=== PATIENT | male | born 1955 | race Caucasian/White ===

== ENCOUNTER 2024-08-31 18:03 | Emergency (ER) | payer MEDICARE, MEDICAID, SELFPAY ==
[2024-08-31 18:17] VITALS: BP 173/82; PULSE 106; RESP 18; TEMP 36.7; O2SAT 98; BMI 18.5
--- NOTE | 2024-08-31 18:36 | PD.EDRME ---
Rapid Medical Screening Exam RME Arrival date/time: 08/31/24 18:03 Chief Complaint: Wound/Laceration Time Seen by Provider: 08/31/24 18:36 Vital signs: Vital Signs Temperature 98.0 F 08/31/24 18:17 Pulse Rate 106 H 08/31/24 18:17 Respiratory Rate 18 08/31/24 18:17 Blood Pressure 173/82 H 08/31/24 18:17 Pulse Oximetry (%) 98 08/31/24 18:17 Oxygen Delivery Method Room Air 08/31/24 18:17 Pulse ox room air is 98% Vital signs reviewed by provider: Yes RME Narrative: 68-year-old special-needs person fell causing a laceration to the left side of his face.
--- NOTE | 2024-08-31 20:15 | EDNOTE_ITS ---
<Statement entered by Mariella Cabral MD - 08/31/24 21:02> As co-signing physician, I was present and available for consult prn. I concur with the plan and care as documented by the midlevel provider. ED Wound/Laceration-RME/HPI General Chief Complaint: Wound/Laceration Stated Complaint: Laceration to left eye Time Seen by Provider: 08/31/24 18:36 Arrival date/time: 08/31/24 18:03 RME / HPI RME / HPI narrative: 68-year-old male patient with significant history of mental retardation, nonverbal, came in for evaluation regarding laceration to the left side of the face. Patient accidentally hit his face on a table resulting into a 1 cm gaping laceration. Denies any LOC denies any other complaints. Patient is ambulatory. Related Data Home Medications ?Medication ?Instructions ?Recorded ?Confirmed phenytoin sodium extended 100 mg 300 mg PO HS ##0 08/0802/19/23 capsule levocetirizine 5 mg tablet 5 mg PO BID PRN Itching 02/19/23 multivitamin 1 tab PO QDAY 12/31/2102/19 quetiapine 50 mg tablet (Seroquel) 50 mg PO BID 02/19/23 temazepam 30 mg capsule 30 mg PO HS 12/31/21 3 fluoxetine 20 mg capsule 40 mg PO QDAY 05/06/2202/19 risperidone 2 mg tablet 3 mg PO HS 05/06/22 02/19/23 atorvastatin 80 mg tablet 80 mg PO QDAY 02/19/2302/19 food supplemt, lactose-reduced 1 ea PO TID 02/19/23 (Ensure oral liquid) valproic acid 250 mg capsule 250 mg PO BID 02/19/23 Previous Rx's ?Medication ?Instructions ?Recorded clindamycin HCl 300 mg capsule 300 mg PO TID #21 caps 12/05/23 Allergies Allergy/AdvReac Type Severity Reaction Status Date / Time No Known Allergies Allergy Verified 08/31/24 18:07 Review of Systems Review of Systems Narrative Review of Systems: Review of system reviewed and within normal limits except mentioned in HPI ED Exam Narrative Physical exam: VITAL SIGNS: Reviewed. GENERAL APPEARANCE: Alert and good eye contact, no acute distress, HEAD AND FACE:+1 cm laceration to left side of face near angle of the eye ENT: PERRL, pink conjunctivitis, eyelid no trauma, Mucous membrane moist. NECK: Supple, nontender, no nuchal rigidity. CHEST: No tenderness, no crepitus, no paradoxical movement, no retractions. LUNGS: Clear, well ventilated, symmetric, no rales, no wheezing, no ronchi, no stridor, good breath sounds bilaterally. HEART: Regular rate, regular rhythm, no murmur, no gallops. ABDOMEN: Soft, positive bowel sounds, nondistended, no guarding, nontender, no rebound, no masses, RECTAL: Deferred. GENITAL: Deferred. NEUROLOGICAL: Gross motor function intact sensory function intact, Appropriate for age. MUSCULOSKELETAL: low back nontender, full range of motion. EXTREMITIES: Nontender, full range of motion. SKIN: Color pink, dry, no rash, no lacerations, no abrasions, no contusions. LYMPHATICS: Deferred. Course Quality Measures none Vital Signs Vital signs: Vital Signs Temperature 98.0 F 08/31/24 18:17 Pulse Rate 106 H 08/31/24 18:17 Respiratory Rate 18 08/31/24 18:17 Blood Pressure 173/82 H 08/31/24 18:17 Pulse Oximetry (%) 98 08/31/24 18:17 Oxygen Delivery Method Room Air 08/31/24 18:17 Wound / Laceration MDM Narrative MDM Narrative:: 68-year-old male patient with significant history of mental retardation, nonverbal, came in for evaluation regarding laceration to the left side of the face. Patient accidentally hit his face on a table resulting into a 1 cm gaping laceration. Denies any LOC denies any other complaints. Patient is ambulatory. Wound cleansed with skin cleanser, Steri-Strips applied and Dermabond applied good approximation of the laceration was achieved. Patient tolerated the procedure well. Imaging is not needed at this time. The injury will not cause intracranial bleeding. Patient data External records reviewed:: None Clinical information provided by:: none Social determinants that could affect healthcare access:: none Patient has the following chronic illnesses:: Seizure disorder, mental retardation How is presenting disease/condition affected by chronic disease/condition?: exacerbated by Evaluation data The following diagnostics were reviewed and interpreted by me:: other (specify) (None) Lab and/or radiology exams considered but not ordered:: None Interpretation Summary: Plan Medications / Prescriptions Medications or Prescriptions considered but not ordered:: None Medication administrations:: None Consultations Consultation(s) initiated? (list below): No Diagnosis Wound Differential Diagnosis: laceration, abrasion and avulsion of skin Most likely diagnosis given after review of the tests above:: Facial laceration Admission Indicated Admission indicated?: not indicated Admission Request Was there a request for admission?: No Disposition Plan Disposition Plan: Discharge Discharge Attestation Discharge Attestation: Patient condition: Stable Discharge Plan Plan Patient Disposition: HOME (Self Care) Discharge Disposition comment: Stable Prescriptions/Referrals Prescriptions/Med Rec: No Action phenytoin sodium extended 100 MG capsule 300 mg PO HS Qty: 0 multivitamin Tablet 1 tab PO QDAY temazepam 30 mg Capsule 30 mg PO HS quetiapine [Seroquel] 50 mg Tablet 50 mg PO BID levocetirizine 5 mg Tablet 5 mg PO BID PRN (Reason: Itching) risperidone 2 mg Tablet 3 mg PO HS fluoxetine 20 mg Capsule 40 mg PO QDAY clindamycin HCl 300 mg capsule 300 mg PO TID Qty: 21 0RF atorvastatin 80 mg tablet 80 mg PO QDAY valproic acid 250 mg capsule 250 mg PO BID Ensure Liquid 1 ea PO TID Referrals: No Primary/Family,Physician [Primary Care Provider] - In 1 week Problem List Clinical Impression: Laceration of face Patient/Caregiver Discharge Instructions Discharge Activity: activity as tolerated Education Materials: ED Laceration Small or ... Additional Instructions: Thank you for the opportunity for serving you today. You are stable for discharged . You are advised to: Follow-up with your PCP in 1 to 2 days Return to ED for worsening of symptoms Do not remove the Steri-Strips for 1 week or until it falls off. Print Language: Kazakh Stand Alone Forms: [employer] Award Info., Patient Portal Info Letter PARISH/KENDALL Supervising Physician PARISH/KENDALL Supervising Physician: MD Sacha
== END 2024-08-31 20:27 | disposition home or self-care (01) ==
PROVIDERS: Emergency Provider Emergency Medicine
DX: S01.81XA Laceration without foreign body of other part of head, initial encounter (principal); W22.8XXA Striking against or struck by other objects, initial encounter
CPT/HCPCS: 12011; 99283

== ENCOUNTER 2025-02-17 08:29 | Inpatient (IN) | payer MEDICARE, MEDICAID, SELFPAY ==
[2025-02-17] VITALS (13 sets, daily range): BP systolic 141–161; BP diastolic 80–109; PULSE 83–110; RESP 16–22; TEMP 36.6–38.8; O2SAT 88–95; BMI 21.7; BMI 20.5
--- NOTE | 2025-02-17 08:38 | XR_ITS ---
Examination: CT cervical spine without contrast 2-D sagittal reconstructions 2-D coronal reconstructions 3-D reconstructions. Exam date and time: February 17, 2025, 1032 hours INDICATIONS: Patient fell today with injury to the neck, neck pain CTDI:vol (mGy) 14.2 DLP: (mGycm) 290 Technique: Multiple 2 mm axial sections of the cervical spine have been obtained. The coronal and sagittal reconstructions have been obtained. 3-D reconstructions have been obtained. Low dose protocols were performed. One or more of the following dose reduction techniques were used; automated exposure control, adjustment of the mA and/or KV according to patient size, use of iterative reconstruction technique. Findings: Axial sections demonstrate intact base of the skull. C1 exhibit satisfactory relationship to the odontoid. No acute cervical vertebral body fracture seen. Alignment posterior spinous processes satisfactory. Impression: No acute cervical fracture.
--- NOTE | 2025-02-17 08:38 | EKG_ITS ---
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
--- NOTE | 2025-02-17 08:38 | XR_ITS ---
Examination: CT brain head without contrast. 2-D sagittal coronal reconstructions Date and time of exam: February 17, 2025, 10:34 a.m. INDICATIONS: Patient fell today with injury to the head, head pain CTDI: vol (mGy): 56 DLP: (mGycm): 1202 Technique: Multiple CT axial sections of the brain have been obtained, 5 mm slice thickness. Contrast has not been administered. 2-D sagittal, coronal reconstructions have been obtained Low dose protocols were performed. One or more of the following dose reduction techniques were used; automated exposure control, adjustment of the mA and/or KV according to patient size, use of iterative reconstruction technique. Findings: No significant ventricular enlargement. Probable sebaceous cyst in the right frontal scalp Intra-axial or extra-axial hemorrhage density is not seen. No mass effect or midline shift Basal cisterns are not remarkable. Fourth ventricle is midline. Cranial vault intact. Impression: Negative for acute hemorrhage, mass effect or midline shift
--- NOTE | 2025-02-17 08:38 | XR_ITS ---
EXAMINATION: AP chest single view TECHNIQUE: AP portable semiupright chest single view Date and time: February 17, 2025, 1045 hours, comparison May 05, 2022 INDICATIONS: Shortness of breath today. FINDINGS: Moderate enlargement left ventricle Moderate vascular congestion Suspicious for early septal edema at the lung bases No lobar pneumonia Old fracture right clavicle IMPRESSION: Early heart failure
--- NOTE | 2025-02-17 08:41 | PD.EDADULT ---
ED General RME/HPI General Chief complaint: Fall Stated complaint: GROUND LEVEL FALL Time Seen by Provider: 02/17/25 08:38 Arrival date/time: 02/17/25 08:29 Related Data Home Medications ?Medication ?Instructions ?Recorded ?Confirmed phenytoin sodium extended 100 mg 300 mg PO HS ##0 09/01/15 02/19/23 capsule levocetirizine 5 mg tablet 5 mg PO BID PRN Itching 12/31/21 02/19/23 multivitamin 1 tab PO QDAY 12/31/21 02/19/23 quetiapine 50 mg tablet (Seroquel) 50 mg PO BID 12/31/21 02/19/23 temazepam 30 mg capsule 30 mg PO HS 12/31/21 02/19/23 fluoxetine 20 mg capsule 40 mg PO QDAY 05/06/22 02/19/23 risperidone 2 mg tablet 3 mg PO HS 05/06/22 02/19/23 atorvastatin 80 mg tablet 80 mg PO QDAY 02/19/23 02/19/23 food supplemt, lactose-reduced 1 ea PO TID 02/19/23 02/19/23 (Ensure oral liquid) valproic acid 250 mg capsule 250 mg PO BID 02/19/23 02/19/23 Previous Rx's ?Medication ?Instructions ?Recorded clindamycin HCl 300 mg capsule 300 mg PO TID #21 caps 12/05/23 furosemide 40 mg tablet (Lasix) 40 mg PO QDAY PRN edema or 02/17/25 shortness of breath 1 week #7 tabs Allergies Allergy/AdvReac Type Severity Reaction Status Date / Time No Known Allergies Allergy Verified 08/31/24 18:07 ED Exam Narrative Physical exam: Physical Exam: GENERAL: Awake, nonresponsive, appears stated age HEENT: 3 cm laceration of the right scalp. Moist mucosa. PERRLA/EOM yes + D71 I. CARDIO: Heart RRR, no obvious murmurs, no JVD. PULM: No coughing or visible SOB but requiring supplemental oxygen in order to saturate >90%. Lungs CTA B/L. GI: Abdomen soft, NT/ND, +BS. SKIN/MSK/EXT: No wounds/discoloration/rashes/edema/amputations noted. +Pedal pulses present B/L. NEURO: Oriented x0, 10?points Hilario Coma Score E(4) V(1) M(5), Moves extremities x4. Course Quality Measures none Orders Category Date Time Status Bedside COVID-19 Antigen Test NOW Care 02/17/25 15:47 Active Bedside Influenza A&B Antigen Test NOW Care 02/17/25 15:47 Completed Bedside RSV Test NOW Care 02/17/25 15:47 Completed EKG (ED ONLY) *Do not use* NOW Care 02/17/25 08:39 Completed In and Out Catheter X1 Care 02/17/25 08:40 Completed Insert IV NOW Care 02/17/25 08:[address] cervical spine wo con Stat Exams 02/17/25 08:[address] head/brain wo con Stat Exams 02/17/25 08:38 Completed CXRP [XR chest 1V portable] Stat Exams 02/17/25 08:38 Completed CXRP [XR chest 1V portable] Stat Exams 02/17/25 16:20 Taken EKG (ED Only) Stat Exams 02/17/25 08:38 Draft BNP [B-Type Natriuretic Peptide] Stat Lab 02/17/25 09:30 Completed CBC Stat Lab 02/17/25 09:30 Completed CMP [Comprehensive Metabolic Panel] Stat Lab 02/17/25 09:30 Completed Lactic Acid [Lactate (Lactic Acid)] Stat Lab 02/17/25 09:30 Completed Troponin I Stat Lab 02/17/25 09:30 Completed Urinalysis, C/S if Indicated Stat Lab 02/17/25 11:08 Completed Furosemide Inj [Lasix Inj] Med 02/17/25 13:20 Discontinued 40 mg IVP X1 ONE Levalbuterol Rt [Xopenex Rt Rebecca] Med 02/17/25 15:40 Discontinued 0.63 mg INH X1 ONE Lidocaine 1% Vial 20 ml [Xylocaine 1% 20 ML] Med 02/17/25 08:41 Discontinued 20 ml INFL X1 ONE Metoprolol Succinate Xl [Toprol Xl] Med 02/17/25 17:54 Once 25 mg PO X1 ONE Vital Signs Vital signs: Vital Signs Respiratory Rate 19 02/17/25 08:31 Blood Pressure 161/93 H 02/17/25 08:31 Pulse Oximetry (%) 88 L 02/17/25 08:31 Discharge Plan Plan Patient Disposition: HOME (Self Care) Patient condition on transfer: Stable Prescriptions/Referrals Prescriptions/Med Rec: New furosemide [Lasix] 40 mg tablet 40 mg PO QDAY PRN (Reason: edema or shortness of breath) 7 Days Qty: 7 0RF No Action phenytoin sodium extended 100 MG capsule 300 mg PO HS Qty: 0 multivitamin Tablet 1 tab PO QDAY temazepam 30 mg Capsule 30 mg PO HS quetiapine [Seroquel] 50 mg Tablet 50 mg PO BID levocetirizine 5 mg Tablet 5 mg PO BID PRN (Reason: Itching) risperidone 2 mg Tablet 3 mg PO HS fluoxetine 20 mg Capsule 40 mg PO QDAY clindamycin HCl 300 mg capsule 300 mg PO TID Qty: 21 0RF atorvastatin 80 mg tablet 80 mg PO QDAY valproic acid 250 mg capsule 250 mg PO BID Ensure Liquid 1 ea PO TID Referrals: Nick Montelongo MD [Primary Care Provider, [facility]] - In 1 week Problem List Clinical Impression: Laceration of adventist Patient/Caregiver Discharge Instructions Additional Instructions: Please follow-up with your PCP within 1 week for suture removal of the right temporal region Ask your PCP to refer you to a cap cutter for cardiac workup and CXR showing early heart failure pattern, not clinically significant If your symptoms worsen or if you develop new chest pain, shortness of breath, dizziness or loss of consciousness - please return to the ER immediately. 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 As noted, patient was at his current baseline when he had a ground-level fall and hit his head which resulted in a 3 cm laceration of his right temporal region. Hypo Dipper at bedside states that she has been with the patient for about 2 weeks and thus is not exactly sure of his entire medical history. Of note, patient has not been seen by cap cutter in the past but does follow-up with a primary care doctor. On examination, please refer to physical exam above; patient presented mildly hypertensive 161/93, heart rate of 99, respirate of 19, afebrile satting 88-95 on room air. Pertinent lab findings include CBC without any pertinent findings including no leukocytosis and no anemia. CMP did not show any concerning electrolyte abnormalities and no acute kidney injury, lactic acid was 1.5, liver function enzymes slightly elevated with AST 54, ALT 36 otherwise T. bili of 0.5 and alk phos of 108. Troponin was less than 0.020, BNP of less than 20. Urinalysis did not show any signs of infection there was some ketones in the urine +1 without any much clinical significance. Due to patient having a fall head CT and cervical spine CT were ordered which were both negative and chest x-ray did not show mild vascular congestion for possible early heart failure. #Ground-level fall #Laceration of the left right temporal region Status post suture placement Plan: Sutures will need to be removed in 10 to 14 days Patient recommended follow-up with PCP within that timeframe so that the sutures could be removed #Early heart failure Incidentally patient noted to have a low SpO2 between 88-95 with some sporadic wet sounding cough Chest x-ray as above did not show anything concerning other than some possibly early heart failure BNP and troponin within normal limits Patient clinical exam does not appear to be an acute heart failure exacerbation with no JVD, crackles or lower extremity pitting edema noted Lasix 40mg IV given x1, breathing treatment with Xopenex and x1 metoprolol succinate 25 mg (tachycardia 110 and BP 151/106 with CHF as above) Lateral chest xray also ordered to r/o any PNA not seen on PA Plan: Will discharge patient with the following recommendation Take lasix 40mg by mouth as needed if patient develop shortness of breath or swelling Ask your PCP to refer you to a cap cutter for cardiac workup and CXR showing early heart failure pattern, not clinically significant If your symptoms worsen or if you develop new chest pain, shortness of breath, dizziness or loss of consciousness - please return to the ER immediately. Patient seen and assessed with attending Dr. Juana Segura, DO PGY-2 Internal Medicine - [facility] Medication Administration(s) Medication Administration History Metoprolol Succinate (Metoprolol Succinate Xl 25 Mg Tabcr) 25 mg PO X1 ONE Stop: 02/17/25 17:55 Discontinued Medications Furosemide (Furosemide Inj 10 Mg/Ml 4ml Vial) 40 mg IVP X1 ONE Stop: 02/17/25 13:21 Last Admin: 02/17/25 14:57 Dose: 40 mg Documented By: BD Levalbuterol HCl (Levalbuterol Rt 0.63 Mg/3 Ml Nebu) 0.63 mg INH X1 ONE Stop: 02/17/25 15:41 Last Admin: 02/17/25 16:08 Dose: 0.63 mg Documented By: AFUA Lidocaine HCl (Lidocaine Hcl 1% 20 Ml Vial) 20 ml INFL X1 ONE Stop: 02/17/25 08:42 Last Admin: 02/17/25 12:41 Dose: 20 ml Documented By: DO Comments: used by provider
[2025-02-17 09:38] LABS: Lactate (Lactic Acid) 1.5 mMol/L (0.4-2.0)
[2025-02-17 09:57] LABS: Basophils # (Auto) 0.0 Thou/mm3 (0.0-0.2); Basophils % (Auto) 0 % (0-2.5); Eosinophils # (Auto) 0.1 Thou/mm3 (0.0-0.5); Eosinophils % (Auto) 1 % (0-10); Hematocrit 46.1 % (41.0-53.0); Hemoglobin 15.7 g/dL (13.5-16.0); Immature Granulocytes Auto 0.03 Thou/mm3 (0.00-0.00); Lymphocytes # (Auto) 0.6 Thou/mm3 (1.0-4.8); Lymphocytes % (Auto) 7 % (10-50); Mean Corpuscular HGB Conc 34.1 g/dl (31.0-37.0); Mean Corpuscular Hemoglobin 32.8 pg (25.0-35.0); Mean Corpuscular Volume 96 fL (80-100); Monocytes # (Auto) 1.5 Thou/mm3 (0.0-0.8); Monocytes % (Auto) 17 % (0-12); Neutrophils # (Auto) 6.6 Thou/mm3 (1.8-7.7); Neutrophils % (Auto) 75 % (37-80); Nucleated Red Blood Cell # 0.00 Thou/mm3 (0.00-0.00); Nucleated Red Blood Cell % 0 /100 WBC (0); Platelet Count 153 Thou/mm3 (140-440); RDW Standard Deviation 42.7 fL (35.1-43.9); Red Blood Count 4.78 Miln/mm3 (4.50-5.90); White Blood Count 8.9 Thou/mm3 (3.8-10.6)
[2025-02-17 10:16] LABS: Alanine Aminotransferase 36 U/L (10-49); Albumin, Serum 4.5 gm/dL (3.4-4.8); Albumin/Globulin Ratio 1.7 (1.2-2.2); Alkaline Phosphatase 108 U/L (46-116); Anion Gap 10 (7-16); Aspartate Amino Transferase 54 U/L (0-34); BUN/Creatinine Ratio 19 Ratio (12-20); Bilirubin,Total 0.5 mg/dL (0.3-1.2); Blood Urea Nitrogen 15 mg/dL (9-23); Calcium 9.3 mg/dL (8.3-10.6); Calcium (Corrected) 9.3 mg/dL (8.5-10.1); Carbon Dioxide 29.8 mMol/L (20.0-31.0); Chloride 102 mMol/L (98-107); Creatinine (Component) 0.8 mg/dL (0.6-1.3); Estimated Creatinine Clearance 80.8 mL/min (>60); Globulin 2.6 gm/dL (2.3-3.5); Glucose 100 mg/dL (74-106); Osmolality,Calculated 283 (275-295); Potassium 4.5 mMol/L (3.4-5.1); Sodium 142 mMol/L (136-145); Total Protein 7.1 gm/dL (5.7-8.2); Troponin I < 0.020 ng/mL (0.0-0.045); eGFR > 60 See Note
[2025-02-17 10:35] LABS: B-Type Natriuretic Peptide < 20 pg/mL (0-100)
[2025-02-17 11:32] LABS: Collection Type, Urine Catheter
--- NOTE | 2025-02-17 11:37 | PC.NURSE ---
provider in room for lac repair at this time
[2025-02-17 11:48] LABS: Bilirubin,Urine Negative (Negative); Blood,Urine Negative (Negative); Clarity,Urine Clear (Clear/Hazy); Color,Urine Yellow (Lt Yel-Yel); Culture Indicated,Urine Not Indicated; Glucose, Urine Negative (Negative); Ketones,Urine 1+ (Negative); Leukocyte Esterase,Urine Negative (Negative); Nitrite,Urine Negative (Negative); PH,Urine 6.0 (5.0-7.0); Protein,Urine Negative (Neg - Trace); RBC,Urine 2 /hpf (0-3); Specific Gravity,Urine 1.022 (1.001-1.035); Squamous Epithelial Cell,Urine < 1 /hpf (0-5); Urobilinogen,Urine Negative mg/dL (0.0-1.0); WBC,Urine 1 /hpf (0-5)
[2025-02-17] MEDS: LIDOCAINE HCL 1% 20 ML VIAL INFL (12:41)
[2025-02-17] MEDS: FUROSEMIDE INJ 10 MG/ML 4ML VIAL 40 MG IVP (14:57)
[2025-02-17] MEDS: LEVALBUTEROL RT 0.63 MG/3 ML NEBU INH (16:08)
--- NOTE | 2025-02-17 16:20 | XR_ITS ---
EXAMINATION: Lateral chest single view TECHNIQUE: Upright lateral chest single view Date and time: September 17, 2024, 1701 hours INDICATIONS: Early heart failure and AP chest February 17, 2025 FINDINGS: Opacity left base obscuring detail left hemidiaphragm Prominent vascular congestion Intact osseous structures IMPRESSION: Prominent vascular congestion Pneumonia posterior basal segment left lower lobe
[2025-02-17] MEDS: METOPROLOL SUCCINATE XL 25 MG TABCR PO (18:14)
[2025-02-17 18:33] LABS: D-Dimer 285 ng/mL (<600)
[2025-02-17 19:14] LABS: Base Excess 7 (-3-3); HCO3 31 mEq/L (20-26); Inspired Oxygen, FIO2 90 %; O2 Saturation 95 % (91-98); PCO2 42 mmHg (32.0-48.0); PO2 66 mmHg (83-108); pH, Arterial 7.48 (7.35-7.45)
[2025-02-17 19:15] LABS: Allen Test Performed/OK; Puncture Site Right Radial
[2025-02-17 19:25] LABS: Base Excess, Venous 7 (-3-3); Lactate (Lactic Acid) 1.5 mMol/L (0.4-2.0); O2 Saturation, Venous 90 % (96-97); PCO2, Venous 41 mmHg (36-56); PO2, Venous 54 mmHg (15-58); pH, Venous 7.49 (7.33-7.66)
[2025-02-17 19:29] LABS: Sed Rate (ESR) 35 mm/hr (0-20)
[2025-02-17] MEDS: cefTRIAXone/D5w 1gm IV premix 1 GM/50 ML BAG IV (19:39)
[2025-02-17] MEDS: AZITHROMYCIN INJ 500 MG in SODIUM CHLORIDE 0.9% 250 ML 250 ML 250 MG IV (19:40)
[2025-02-17 19:58] LABS: Alcohol, Blood Medical < 3.0 mg/dL (0-10.0); Bilirubin,Direct 0.1 mg/dL (0.0-0.3); Lipase 28 U/L (12-53); Magnesium 2.1 mg/dL (1.6-2.6); Procalcitonin 0.25 ng/ml (0.0-0.49); Thyroid Stimulating Hormone 3.58 uIU/mL (0.55-4.78)
--- NOTE | 2025-02-17 20:23 | PD.EDADDENDU ---
Emergency Room Addendum Addendum Narrative: I took over the care from Qasim Segura MD at _6PM_ on _02/17/25_. See previous notes for complete H & P and ED course. I reviewed all diagnostic test results. Diagnoses include: Acute respiratory failure with hypoxia Pneumonia I discussed the case with our hospitalist. About the presentation and exam and diagnostics and treatments here. And need of further care in the hospital. Will accept the patient. Ez Gould MD
[2025-02-17 20:54] LABS: Glucose Estimated Average 97 mg/dL (80-131); Hemoglobin A1C 5.0 % Hgb (4.8-6.0)
[2025-02-17 20:58] LABS: C-Reactive Protein > 10.0 mg/dL (0.0-0.9)
[2025-02-17] MEDS: RINGERS LACTATED 1000 ML 1,000 ML 999 ML IV (21:34)
[2025-02-17] MEDS: PHENYTOIN 100 MG CAPSR 300 MG PO (21:34)
[2025-02-17 23:00] LABS: Amphetamine/Methamp Scrn,U Negative (Negative); Barbiturate Screen,Urine Negative (Negative); Benzodiazepines Screen,Urine Negative (Negative); Benzoylecgonine Screen, Ur Negative (Negative); Fentanyl Screen,Urine Negative (Negative); Opiate Screen,Urine Negative (Negative); THC Screen,Urine Negative (Negative)
[2025-02-18] VITALS (16 sets, daily range): BP systolic 113–156; BP diastolic 67–73; PULSE 65–98; RESP 17–24; TEMP 36.2–36.9; O2SAT 95–98; BMI 20.4
--- NOTE | 2025-02-18 00:13 | PD.HHHP ---
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 Wood Drill Operator also notes that patient has had mild fevers and cough for 1 day. At ED patient was noted to have 2 right temporal laceration and hematoma for which head CT and cervical spine CT were ordered at ED and were both normal with no acute abnormalities. History is limited to online banking specialist who is present by bedside as patient is nonverbal, at ED patient was seen on 5 L nasal cannula saturating at 96%, patient desaturate when taken off oxygen 86%. Vitals were noted for hypertension, tachycardia, tachypnea. ABG was noted for pO2 66, CXR showed pneumonia in posterior segment of left lower lobe, patient was given 1 dose of IV Lasix for concern of CHF noted on CXR, on exam patient was found to be dehydrated and was given 1L of LR bolus. Patient admitted for acute hypoxic respiratory failure in setting of community-acquired pneumonia. Review of Systems Review of Systems ROS Unobtainable: unobtainable due to medical condition Meds Home Medications and Allergies Home Medications ?Medication ?Instructions ?Recorded ?Confirmed ?Type phenytoin sodium extended 100 mg 300 mg PO HS ##0 09/01/15 02/18/25 History capsule levocetirizine 5 mg tablet 5 mg PO BID PRN Itching 12/31/21 02/18/25 History multivitamin 1 tab PO QDAY 12/31/21 02/18/25 History quetiapine 50 mg tablet (Seroquel) 50 mg PO BID 12/31/21 02/19/23 History temazepam 30 mg capsule 30 mg PO HS 12/31/21 02/19/23 History fluoxetine 20 mg capsule 40 mg PO QDAY 05/06/22 02/19/23 History risperidone 2 mg tablet 3 mg PO HS 05/06/22 02/19/23 History atorvastatin 80 mg tablet 80 mg PO QDAY 02/19/23 02/19/23 History food supplemt, lactose-reduced 1 ea PO TID 02/19/23 02/19/23 History (Ensure oral liquid) valproic acid 250 mg capsule 250 mg PO BID 02/19/23 02/18/25 History divalproex 500 mg tablet,extended 2,000 mg PO HS anxiety 02/18/25 02/18/25 History release 24 hr Allergies Allergy/AdvReac Type Severity Reaction Status Date / Time No Known Allergies Allergy Verified 08/31/24 18:07 Exam Vital Signs Temp Pulse Resp BP Pulse Ox O2 Del Method O2 Flow Rate 99.2 F 92 22 H 142/81 H 95 Room Air 3.5 02/17/25 21:27 02/17/25 21:27 02/17/25 21:27 02/17/25 21:27 02/17/25 21:27 02/17/25 21:27 02/17/25 16:08 Narrative General: Not in acute distress. HEENT: Normocephalic,anicteric, EOM intact, PERRLA, moist mucous membranes, right mosque laceration and hematoma Heart: Tachycardic, no murmur or gallop. Lungs: Tachypneic, Clear to auscultation with equal breath sounds bilaterally. Abdomen: Bowel sounds normal, soft, non distended, no tenderness or guarding, no CVA tenderness Extremities: Sensation, circulation &motor function intact and equal in all extremities. Neurologic: Alert and oriented to name, place and date of , CN II-XII intact, able to move all extremities, DTRs normal Skin: Warm, dry, no rashes or ecchymosis noted. Results - Hospitalist Labs Diagrams: 02/17/25 09:30 02/17/25 09:30 Labs: Short CBC 02/17/25 Range/Units 09:30 WBC 8.9 (3.8-10.6) Thou/mm3 Hgb 15.7 (13.5-16.0) g/dL Hct 46.1 (41.0-53.0) % Plt Count 153 (140-440) Thou/mm3 BMP 02/17/25 09:30 Sodium 142 Potassium 4.5 Chloride 102 Carbon Dioxide 29.8 BUN 15 Creatinine 0.8 Glucose 100 Calcium 9.3 Cardiac Enzymes 02/17/25 Range/Units 09:30 Troponin I < 0.020 (0.0-0.045) ng/mL Liver Function 02/17/25 02/17/25 Range/Units 09:30 19:10 Total Bilirubin 0.5 (0.3-1.2) mg/dL Direct Bilirubin 0.1 (0.0-0.3) mg/dL AST 54 H (0-34) U/L ALT 36 (10-49) U/L Alkaline Phosphatase 108 (46-116) U/L Albumin 4.5 (3.4-4.8) gm/dL Urine 02/17/25 Range/Units 11:08 Urine Color Yellow (Lt Yel-Yel) Urine Clarity Clear (Clear/Hazy) Urine pH 6.0 (5.0-7.0) Ur Specific [place] 1.022 (1.001-1.035) Urine Protein Negative (Neg - Trace) Urine Glucose (UA) Negative (Negative) ABG Interpretation ABG results: 02/17/25 02/17/25 19:07 19:10 ABG pH 7.48 H ABG pCO2 42 ABG pO2 66 L ABG HCO3 31 H ABG O2 Saturation 95 ABG Base Excess 7 H VBG pH 7.49 VBG pCO2 41 VBG pO2 54 VBG Base Excess 7 H Assessment & Plan -Hospitalist Additional Assessment 69-year-old male past medical history of developmental delay, nonverbal at baseline, seizure disorder, CVA with no residual deficits jade in after a fall without losing consciousness per social worker palliative care. Wood Drill Operator also notes that patient has had mild fevers and cough for 1 day. At ED patient was noted to have 2 right temporal laceration and hematoma for which head CT and cervical spine CT were ordered at ED and were both normal with no acute abnormalities. History is limited to online banking specialist who is present by bedside as patient is nonverbal, at ED patient was seen on 5 L nasal cannula saturating at 96%, patient desaturate when taken off oxygen 86%. Vitals were noted for hypertension, tachycardia, tachypnea. ABG was noted for pO2 66, CXR showed pneumonia in posterior segment of left lower lobe, patient will be admitted for acute hypoxic respiratory failure in setting of community-acquired pneumonia. Patient was given 1 dose of IV Lasix for concern of CHF noted on CXR, on exam patient was found to be dehydrated and was given 1L of LR bolus. #Acute hypoxic respiratory failure #Community-acquired pneumonia Oxygen as needed Follow-up blood cultures/sputum cultures Patient started on azithromycin, ceftriaxone #Ground-level fall #Laceration of the left right temporal region Status post suture placement Plan: Sutures will need to be removed in 10 to 14 days Patient recommended follow-up with PCP within that timeframe so that the sutures could be removed #Hypertension #Hyperlipidemia #Hx of CVA #History of seizures #Anxiety and aggression Resume home medications once reconciled. After examination of the patient and review of the clinical data I feel that this patient needs admission to the hospital for further treatment/evaluation. Plan of care discussed with patient and is in agreement. Shira Barrow MD Quality Measures Quality Measures VTE prophylaxis Advance care planning discussed with:: other (Wood Drill Operator)
--- NOTE | 2025-02-18 02:14 | PC.NURSE ---
Unable to complete orthostatic vitals at this time, patient not strong enough to stand up.
[2025-02-18 05:52] LABS: Magnesium 2.0 mg/dL (1.6-2.6)
--- NOTE | 2025-02-18 07:58 | ESPR_ITS ---
<Statement entered by Eduin Taylor MD - 02/18/25 18:13> I saw and examined patient personally and supervised PGY 1 resident, Dr. Crowe with formulating a management plan. I agree with the documentation with the exceptions as listed below. Patient on supplemental O2 and on ceftriaxone and azithromycin IV for treatment of community-acquired pneumonia. Once oxygen requirements are reduced, anticipate discharge back to his facility within next 24 to 48 hours. Plan of care discussed with Attending Dr. Dhaval Taylor MD PGY 2 Disclaimer: This note was dictated by speech recognition. Minor errors in cutting torch operator may be present due to voice recognition software. Documentation for date of: 02/18/25 Subjective Subjective Interval history: Patient seen and examined at bedside; no acute events overnight. Exam Vital Signs Temp Pulse Resp BP Pulse Ox O2 Del Method O2 Flow Rate 98.4 F 98 19 113/69 98 Room Air 4 02/18/25 04:00 02/18/25 04:21 02/18/25 04:00 02/18/25 04:00 02/18/25 04:00 02/18/25 04:00 02/17/25 22:55 Narrative Exam General: A/O x0, nonverbal at baseline, no acute distress, well-nourished, well- developed Eyes: PERRL, EOMI. Anicteric, vision grossly intact. Ears: No ear pain, no ear discharge, Hearing grossly intact. Nose: No nasal discharge. Mouth/Throat: Moist mucous membranes, no redness, no lesions. Neck: Neck supple, non-tender, no cervical lymphadenopathy. Lungs: Clear JEROME to auscultation and percussion, No accessory muscle use. Cardio: Normal S1/S2, regular rhythm, no murmurs, no JVD or carotid bruits. Abdomen: Soft, non-tender, no palpable masses, peristalsis present, no guarding or rebound. Extremities: Symmetrical, no significant deformities, no peripheral edema , non-tender, peripheral pulses present. Skin: No rashes, warm to touch. R hoahaoism/forehead scabbed wound, bruising from fall Neuro: No focal neurological deficits. Psych: Cooperative, appropriate mood and effect. Objective Labs 02/18/25 08:30 02/18/25 08:30 Labs: Laboratory Results - last 24 hr 02/17/25 02/17/25 02/17/25 09:30 11:08 19:07 WBC 8.9 RBC 4.78 Hgb 15.7 Hct 46.1 MCV 96 MCH 32.8 MCHC 34.1 RDW Std Deviation 42.7 Plt Count 153 Neut % (Auto) 75 Lymph % (Auto) 7 L Christian % (Auto) 17 H Eos % (Auto) 1 Baso % (Auto) 0 Neut # (Auto) 6.6 Lymph # (Auto) 0.6 L Christian # (Auto) 1.5 H Eos # (Auto) 0.1 Baso # (Auto) 0.0 Immature Gran # (Auto) 0.03 H Absolute Nucleated RBC 0.00 Immature Gran % 0 Nucleated RBC % 0 ESR D-Dimer 285 Puncture Site Right Radial ABG pH 7.48 H ABG pCO2 42 ABG pO2 66 L ABG HCO3 31 H ABG O2 Saturation 95 ABG Base Excess 7 H VBG pH VBG pCO2 VBG pO2 VBG O2 Sat (Bela) VBG Base Excess FiO2 90 Sodium 142 Potassium 4.5 Chloride 102 Carbon Dioxide 29.8 Anion Gap 10 BUN 15 Creatinine 0.8 Estim Creat Clear Calc 80.8 eGFR > 60 BUN/Creatinine Ratio [address] Glu mg/dL Hemoglobin A1c Calculated Osmolality 283 Lactic Acid 1.5 Calcium 9.3 Corrected Calcium 9.3 Magnesium Total Bilirubin 0.5 Direct Bilirubin AST 54 H ALT 36 Alkaline Phosphatase 108 Troponin I < 0.020 C-Reactive Prot, Quant B-Natriuretic Peptide < 20 Total Protein 7.1 Albumin 4.5 Globulin 2.6 Albumin/Globulin Ratio 1.7 Lipase Procalcitonin TSH Ur Collection Type Catheter Urine Color Yellow Urine Clarity Clear Urine pH 6.0 Ur Specific [place] 1.022 Urine Protein Negative Urine Glucose (UA) Negative Urine Ketones 1+ A Urine Blood Negative Urine Nitrite Negative Urine Bilirubin Negative Urine Urobilinogen (Auto) Negative Ur Leukocyte Esterase Negative Urine RBC 2 Urine WBC 1 Ur Squamous Epith Cells < 1 Urine Bacteria None Ur Culture Indicated? Not Indicated Urine Opiates Screen Negative Urine Fentanyl Screen Negative Ur Barbiturates Screen Negative U Amphetamin/Meth Scrn Negative U Benzodiazepines Scrn Negative U Cocaine Metab Screen Negative U Marijuana (THC) Screen Negative Ethyl Alcohol 02/17/25 02/18/25 19:10 04:18 WBC RBC Hgb Hct MCV MCH MCHC RDW Std Deviation Plt Count Neut % (Auto) Lymph % (Auto) Christian % (Auto) Eos % (Auto) Baso % (Auto) Neut # (Auto) Lymph # (Auto) Christian # (Auto) Eos # (Auto) Baso # (Auto) Immature Gran # (Auto) Absolute Nucleated RBC Immature Gran % Nucleated RBC % ESR 35 H D-Dimer Puncture Site ABG pH ABG pCO2 ABG pO2 ABG HCO3 ABG O2 Saturation ABG Base Excess VBG pH 7.49 VBG pCO2 41 VBG pO2 54 VBG O2 Sat (Bela) 90 L VBG Base Excess 7 H FiO2 Sodium Potassium Chloride Carbon Dioxide Anion Gap BUN Creatinine Estim Creat Clear Calc eGFR BUN/Creatinine Ratio Glucose Estimated Ave Glu mg/dL 97 Hemoglobin A1c 5.0 Calculated Osmolality Lactic Acid 1.5 Calcium Corrected Calcium Magnesium 2.1 2.0 Total Bilirubin Direct Bilirubin 0.1 AST ALT Alkaline Phosphatase Troponin I C-Reactive Prot, Quant > 10.0 H B-Natriuretic Peptide Total Protein Albumin Globulin Albumin/Globulin Ratio Lipase 28 Procalcitonin 0.25 TSH 3.58 Ur Collection Type Urine Color Urine Clarity Urine pH Ur Specific [place] Urine Protein Urine Glucose (UA) Urine Ketones Urine Blood Urine Nitrite Urine Bilirubin Urine Urobilinogen (Auto) Ur Leukocyte Esterase Urine RBC Urine WBC Ur Squamous Epith Cells Urine Bacteria Ur Culture Indicated? Urine Opiates Screen Urine Fentanyl Screen Ur Barbiturates Screen U Amphetamin/Meth Scrn U Benzodiazepines Scrn U Cocaine Metab Screen U Marijuana (THC) Screen Ethyl Alcohol < 3.0 ABG Interpretation ABG results: 02/17/25 02/17/25 19:07 19:10 ABG pH 7.48 H ABG pCO2 42 ABG pO2 66 L ABG HCO3 31 H ABG O2 Saturation 95 ABG Base Excess 7 H VBG pH 7.49 VBG pCO2 41 VBG pO2 54 VBG Base Excess 7 H Quality Measures Quality Measures VTE prophylaxis Advance care planning discussed with:: other Assessment & Plan Assessment Current Active Medications: Generic Name Dose Route Start Last Admin Trade Name Freq PRN Reason Stop Dose Admin Acetaminophen 650 mg 02/17/25 20:04 Acetaminophen 325 Mg Tablet PO 03/19/25 20:03 Q6H PRN Fever >101.5 Enoxaparin Sodium 40 mg 02/18/25 09:00 Enoxaparin Sod Inj 40 Mg/0.4 Ml Syringe SC 03/04/25 08:59 QDAY REGINA Azithromycin 250 mg/ Sterile 252.5 mls @ 252.5 mls/hr 02/18/25 09:00 Water 2.5 ml/ Sodium Chloride IV 02/25/25 08:59 QDAY REGINA Ceftriaxone Sodium/Dextrose 1 gm in 50 mls @ 100 mls/hr 02/18/25 09:00 Rocephin/D5w 1gm Iv Premix IV 02/25/25 08:59 QDAY REGINA Phenytoin 300 mg 02/17/25 21:00 02/17/25 21:34 Phenytoin 100 Mg Capsr PO 03/19/25 20:59 300 mg HS REGINA Administration Plan Patient is a 69-year-old male past medical history of developmental delay, nonverbal at baseline, seizure disorder, CVA with no residual deficits brought in after a fall without losing consciousness per rn complex care. #Acute hypoxic respiratory failure #Community-acquired pneumonia CXR shows pneumonia posterior basal segment. Plan: Follow-up blood cultures/sputum cultures Azithromycin 250qday, ceftriaxone 1gm qday #Ground-level fall #Laceration of the left right temporal region, status post suture placement Plan: Remove sutures in 10-14 days Recommend PCP follow up #Hypertension #Hyperlipidemia #Hx of CVA, with residual dysphagia #History of seizures #Anxiety and aggression Resumed home dilantin Disposition: Med-Tele DVT prophylaxis: lovenox 40 day GI prophylaxis: Diet: Puree diet, dysphagia 1 Lines: PIV CODE STATUS: Full This case was discussed with my attending physician, Dr. Andrea, and senior resident, Dr. Taylor. Linwood Crowe, PGY1 Attending Provider Attestation/Addendum 69-year-old male patient was admitted for community-acquired pneumonia, also had a fall with left temporal laceration. The patient appears stable today. He had history of CVA. He has had seizure, hypertension and hyperlipidemia. Continue current antibiotic treatment and check culture results. I discussed with and supervised the resident physician who took care of this patient. I agree with the assessment and plan as above.
[2025-02-18] MEDS: ENOXAPARIN SOD INJ 40 MG/0.4 ML SYRINGE SC (08:10)
[2025-02-18] MEDS: cefTRIAXone/D5w 1gm IV premix 1 GM/50 ML BAG IV (08:11)
[2025-02-18 08:42] LABS: Basophils # (Auto) 0.0 Thou/mm3 (0.0-0.2); Basophils % (Auto) 0 % (0-2.5); Eosinophils # (Auto) 0.0 Thou/mm3 (0.0-0.5); Eosinophils % (Auto) 0 % (0-10); Hematocrit 42.7 % (41.0-53.0); Hemoglobin 14.4 g/dL (13.5-16.0); Immature Granulocytes Auto 0.02 Thou/mm3 (0.00-0.00); Lymphocytes # (Auto) 0.7 Thou/mm3 (1.0-4.8); Lymphocytes % (Auto) 6 % (10-50); Mean Corpuscular HGB Conc 33.7 g/dl (31.0-37.0); Mean Corpuscular Hemoglobin 32.5 pg (25.0-35.0); Mean Corpuscular Volume 96 fL (80-100); Monocytes # (Auto) 2.1 Thou/mm3 (0.0-0.8); Monocytes % (Auto) 19 % (0-12); Neutrophils # (Auto) 8.2 Thou/mm3 (1.8-7.7); Neutrophils % (Auto) 74 % (37-80); Nucleated Red Blood Cell # 0.00 Thou/mm3 (0.00-0.00); Nucleated Red Blood Cell % 0 /100 WBC (0); Platelet Count 202 Thou/mm3 (140-440); RDW Standard Deviation 42.7 fL (35.1-43.9); Red Blood Count 4.43 Miln/mm3 (4.50-5.90); White Blood Count 11.0 Thou/mm3 (3.8-10.6)
[2025-02-18 09:04] LABS: Alanine Aminotransferase 31 U/L (10-49); Albumin, Serum 4.2 gm/dL (3.4-4.8); Albumin/Globulin Ratio 1.6 (1.2-2.2); Alkaline Phosphatase 98 U/L (46-116); Anion Gap 10 (7-16); Aspartate Amino Transferase 31 U/L (0-34); BUN/Creatinine Ratio 21 Ratio (12-20); Bilirubin,Total 0.4 mg/dL (0.3-1.2); Blood Urea Nitrogen 17 mg/dL (9-23); Calcium 9.2 mg/dL (8.3-10.6); Calcium (Corrected) 9.2 mg/dL (8.5-10.1); Carbon Dioxide 31.1 mMol/L (20.0-31.0); Chloride 101 mMol/L (98-107); Creatinine (Component) 0.8 mg/dL (0.6-1.3); Estimated Creatinine Clearance 76.4 mL/min (>60); Globulin 2.7 gm/dL (2.3-3.5); Glucose 101 mg/dL (74-106); Magnesium 2.2 mg/dL (1.6-2.6); Osmolality,Calculated 284 (275-295); Phosphorous 3.9 mg/dL (2.4-5.1); Potassium 3.9 mMol/L (3.4-5.1); Sodium 142 mMol/L (136-145); Total Protein 6.9 gm/dL (5.7-8.2); eGFR > 60 See Note
[2025-02-18] MEDS: AZITHROMYCIN INJ 250 MG, Sterile Water 2.5 ML in SODIUM CHLORIDE 0.9% 250 ML 250 ML 252.5 MG IV (09:32)
--- NOTE | 2025-02-18 10:50 | PC.SS ---
This is 69-year-old, , single male who presented to the ED due to suffering from fever, cough and fall. Patient is nonverbal. All information was provided by caregiver. Patient resides at [facility] since 01/01/1993. For the most part, patient is active and able to ambulate without assistance. However, he has been unsteady on his feet; therefore, suffering from a fall. Patient might need a wheelchair. Patient has no DME at home. Patient's PCP is Dr. Montelongo. Patient's primary medical decision maker is his sister, Elo Britton ([phone]). When medically clear, patient will return to [facility]. [facility] has a van for transportation; however, care providers have to be notified at least two hours before. New portal administrator is Avery Merchant ([phone]). Discharge plan: Return to [facility], and facility to provide transportation.
--- NOTE | 2025-02-18 11:08 | PCS.ST ---
pt unable to wake up for bedside swallow evaluation. However, pt on regular diet & thin liquids when baseline diet of puree and nectar thick liquids. Spoke to MD, GED TUTOR will update diet.
[2025-02-18] MEDS: SODIUM CL RT SOL 3% 4 ML NEBU (NON-FORMULARY) INH ×2 (14:16→19:38)
[2025-02-18] MEDS: PHENYTOIN 100 MG CAPSR 300 MG PO (20:23)
[2025-02-19] VITALS (15 sets, daily range): BP systolic 110–146; BP diastolic 65–86; PULSE 69–91; RESP 16–30; TEMP 36.1–36.9; O2SAT 92–97
[2025-02-19] MEDS: SODIUM CL RT SOL 3% 4 ML NEBU (NON-FORMULARY) INH ×4 (01:14→18:20)
[2025-02-19] MEDS: cefTRIAXone/D5w 1gm IV premix 1 GM/50 ML BAG IV (08:08)
[2025-02-19] MEDS: ENOXAPARIN SOD INJ 40 MG/0.4 ML SYRINGE SC (08:08)
[2025-02-19] MEDS: FERROUS SULF 325 MG TABLET PO (09:30)
[2025-02-19] MEDS: AZITHROMYCIN INJ 250 MG, Sterile Water 2.5 ML in SODIUM CHLORIDE 0.9% 250 ML 250 ML 252.5 MG IV (09:30)
[2025-02-19] MEDS: MULTIVITAMINS TABLET 1 TAB PO (09:30)
[2025-02-19] MEDS: DOCUSATE SOD 250 MG CAPSULE PO (09:30)
[2025-02-19] MEDS: ALBUTEROL/IPRATROPIUM (Duoneb) RT SOL 3 ML NEBU INH ×2 (12:40→18:20)
--- NOTE | 2025-02-19 13:19 | PD.RESPRO ---
Documentation for date of: 02/19/25 Subjective Subjective Interval history: Patient seen and examined at bedside; no acute events overnight. Blood culture shows no growth after 24 hours, and sputum gram stain shows 2+ WBC, 1+ GPC. Exam Vital Signs Temp Pulse Resp BP Pulse Ox O2 Del Method O2 Flow Rate 97.5 F 91 22 H 146/86 H 97 Nasal Cannula 4 02/19/25 08:00 02/19/25 13:13 02/19/25 12:40 02/19/25 08:00 02/19/25 12:40 02/19/25 08:00 02/19/25 12:40 Narrative Exam General: A/O x0, nonverbal at baseline, no acute distress, well-nourished, well-developed Eyes: PERRL, EOMI. Anicteric, vision grossly intact. Ears: No ear pain, no ear discharge, Hearing grossly intact. Nose: No nasal discharge. Mouth/Throat: Moist mucous membranes, no redness, no lesions. Neck: Neck supple, non-tender, no cervical lymphadenopathy. Lungs: Clear JEROME to auscultation and percussion, No accessory muscle use. Cardio: Normal S1/S2, regular rhythm, no murmurs, no JVD or carotid bruits. Abdomen: Soft, non-tender, no palpable masses, peristalsis present, no guarding or rebound. Extremities: Symmetrical, no significant deformities, no peripheral edema , non-tender, peripheral pulses present. Skin: No rashes, warm to touch. R protestant/forehead scabbed wound, bruising from fall Neuro: No focal neurological deficits. Psych: Cooperative, appropriate mood and effect. Objective Labs 02/20/25 04:58 02/20/25 04:58 ABG Interpretation ABG results: 02/17/25 02/17/25 19:07 19:10 ABG pH 7.48 H ABG pCO2 42 ABG pO2 66 L ABG HCO3 31 H ABG O2 Saturation 95 ABG Base Excess 7 H VBG pH 7.49 VBG pCO2 41 VBG pO2 54 VBG Base Excess 7 H Quality Measures Quality Measures VTE prophylaxis Advance care planning discussed with:: other Assessment & Plan Assessment Current Active Medications: Generic Name Dose Route Start Last Admin Trade Name Freq PRN Reason Stop Dose Admin Acetaminophen 650 mg 02/17/25 20:04 Acetaminophen 325 Mg Tablet PO 03/19/25 20:03 Q6H PRN Fever >101.5 Albuterol/Ipratropium 3 ml 02/19/25 13:00 02/19/25 12:40 Albuterol/Ipratropium (Duoneb) Rt Rebecca 3 Ml Nebu INH 03/21/25 12:59 3 ml Q6HRRT REGINA Administration Divalproex Sodium 2,000 mg 02/19/25 21:[address] 500 Mg Tablet.Dr PO 03/21/25 20:59 HS REGINA Docusate Sodium 250 mg 02/19/25 09:15 02/19/25 09:30 Docusate Sod 250 Mg Capsule PO 03/21/25 09:14 250 mg QDAY REGINA Administration Protocol Enoxaparin Sodium 40 mg 02/18/25 09:00 02/19/25 08:08 Enoxaparin Sod Inj 40 Mg/0.4 Ml Syringe SC 03/04/25 08:59 40 mg QDAY REGINA Administration Ferrous Sulfate 325 mg 02/19/25 09:15 02/19/25 09:30 Ferrous Sulf 325 Mg Tablet PO 03/21/25 09:14 325 mg QOD REGINA Administration Azithromycin 250 mg/ Sterile 252.5 mls @ 252.5 mls/hr 02/18/25 09:00 02/19/25 09:30 Water 2.5 ml/ Sodium Chloride IV 02/25/25 08:59 252.5 mls/hr QDAY REGINA Administration Ceftriaxone Sodium/Dextrose 1 gm in 50 mls @ 100 mls/hr 02/18/25 09:00 02/19/25 08:08 Rocephin/D5w 1gm Iv Premix IV 02/25/25 08:59 100 mls/hr QDAY REGINA Administration Loratadine 5 mg 02/19/25 09:16 Loratadine 10 Mg Tablet PO BID PRN Itching Multivitamins 1 tab 02/19/25 09:30 02/19/25 09:30 Multivitamins Tablet PO 03/21/25 09:29 1 tab QDAY REGINA Administration Olanzapine 30 mg 02/19/25 09:15 Olanzapine 5 Mg Tablet PO 03/21/25 09:14 QDAY REGINA Phenytoin 300 mg 02/17/25 21:00 02/18/25 20:23 Phenytoin 100 Mg Capsr PO 03/19/25 20:59 300 mg HS REGINA Administration Sodium Chloride 4 ml 02/18/25 13:00 02/19/25 12:40 Sodium Cl Rt Rebecca 3% 4 Ml Nebu (Non-Formulary) INH 03/20/25 12:59 4 ml Q6HRRT REGINA Administration Plan Patient is a 69-year-old male past medical history of developmental delay, nonverbal at baseline, seizure disorder, CVA with no residual deficits brought in after a fall without losing consciousness per urgent care physician. #Acute hypoxic respiratory failure #Community-acquired pneumonia CXR shows pneumonia posterior basal segment. Blood culture shows no growth after 24 hours, and sputum gram stain shows 2+ WBC, 1+ GPC. Plan: Follow-up blood/sputum cultures Azithromycin 250qday, ceftriaxone 1gm qday #Ground-level fall #Laceration of the left right temporal region, status post suture placement Plan: Remove sutures in 10-14 days Recommend PCP follow up #Hypertension #Hyperlipidemia #Hx of CVA, with residual dysphagia #History of seizures #Anxiety and aggression Resumed home dilantin Disposition: Med-Tele DVT prophylaxis: lovenox 40 day GI prophylaxis: Diet: Puree diet, dysphagia 1 Lines: PIV CODE STATUS: Full This case was discussed with my attending physician, Dr. Andrea, and senior resident, Dr. Beltran. Linwood Crowe, PGY1 Senior Resident Attestation: I discussed with and supervised the recruiting internship physician involved in the care of this patient. I personally saw and examined the patient and discussed the assessment and plan with the entire medicine team, including my attending. I agree with the assessment and plan as documented above. Heath Beltran MD PGY3 Internal Medicine Attending Provider Attestation/Addendum 9-year-old male patient was admitted for community-acquired pneumonia, also had a fall with left temporal laceration He had history of CVA. He has had seizure, hypertension and hyperlipidemia. Today the patient is afebrile but mildly tachypneic on exam. He is on dysphagia diet. Continue current antibiotic treatment and check culture results. I discussed with and supervised the resident physician who took care of this patient. I agree with the assessment and plan as above.
--- NOTE | 2025-02-19 16:07 | PC.SS ---
Rounding: On IV ABX, plan for DC tomorrow back to [facility]
[2025-02-19] MEDS: DIVALPROEX SOD DR 500 MG TABLET.DR 2000 MG PO (20:34)
[2025-02-19] MEDS: PHENYTOIN 100 MG CAPSR 300 MG PO (20:35)
[2025-02-20] VITALS (10 sets, daily range): BP systolic 107–148; BP diastolic 66–99; PULSE 60–88; RESP 16–23; TEMP 36.1–36.5; O2SAT 95–100
[2025-02-20] MEDS: SODIUM CL RT SOL 3% 4 ML NEBU (NON-FORMULARY) INH ×3 (01:00→12:06)
[2025-02-20] MEDS: ALBUTEROL/IPRATROPIUM (Duoneb) RT SOL 3 ML NEBU INH ×3 (01:00→12:06)
[2025-02-20 06:34] LABS: Basophils # (Auto) 0.0 Thou/mm3 (0.0-0.2); Basophils % (Auto) 0 % (0-2.5); Eosinophils # (Auto) 0.1 Thou/mm3 (0.0-0.5); Eosinophils % (Auto) 1 % (0-10); Hematocrit 44.0 % (41.0-53.0); Hemoglobin 14.4 g/dL (13.5-16.0); Immature Granulocytes Auto 0.02 Thou/mm3 (0.00-0.00); Lymphocytes # (Auto) 1.0 Thou/mm3 (1.0-4.8); Lymphocytes % (Auto) 17 % (10-50); Mean Corpuscular HGB Conc 32.7 g/dl (31.0-37.0); Mean Corpuscular Hemoglobin 32.1 pg (25.0-35.0); Mean Corpuscular Volume 98 fL (80-100); Monocytes # (Auto) 0.9 Thou/mm3 (0.0-0.8); Monocytes % (Auto) 16 % (0-12); Neutrophils # (Auto) 3.8 Thou/mm3 (1.8-7.7); Neutrophils % (Auto) 66 % (37-80); Nucleated Red Blood Cell # 0.00 Thou/mm3 (0.00-0.00); Nucleated Red Blood Cell % 0 /100 WBC (0); Platelet Count 206 Thou/mm3 (140-440); RDW Standard Deviation 42.7 fL (35.1-43.9); Red Blood Count 4.49 Miln/mm3 (4.50-5.90); White Blood Count 5.8 Thou/mm3 (3.8-10.6)
[2025-02-20 07:39] LABS: Alanine Aminotransferase 54 U/L (10-49); Albumin, Serum 4.1 gm/dL (3.4-4.8); Albumin/Globulin Ratio 1.4 (1.2-2.2); Alkaline Phosphatase 120 U/L (46-116); Anion Gap 12 (7-16); Aspartate Amino Transferase 49 U/L (0-34); BUN/Creatinine Ratio 16 Ratio (12-20); Bilirubin,Total 0.2 mg/dL (0.3-1.2); Blood Urea Nitrogen 11 mg/dL (9-23); Calcium 8.9 mg/dL (8.3-10.6); Calcium (Corrected) 8.9 mg/dL (8.5-10.1); Carbon Dioxide 29.3 mMol/L (20.0-31.0); Chloride 106 mMol/L (98-107); Creatinine (Component) 0.7 mg/dL (0.6-1.3); Estimated Creatinine Clearance 87.3 mL/min (>60); Globulin 3.0 gm/dL (2.3-3.5); Glucose 94 mg/dL (74-106); Magnesium 2.2 mg/dL (1.6-2.6); Osmolality,Calculated 291 (275-295); Phosphorous 3.5 mg/dL (2.4-5.1); Potassium 4.4 mMol/L (3.4-5.1); Sodium 147 mMol/L (136-145); Total Protein 7.1 gm/dL (5.7-8.2); eGFR > 60 See Note
[2025-02-20] MEDS: MULTIVITAMINS TABLET 1 TAB PO (09:31)
[2025-02-20] MEDS: ENOXAPARIN SOD INJ 40 MG/0.4 ML SYRINGE SC (09:31)
[2025-02-20] MEDS: DOCUSATE SOD 250 MG CAPSULE PO (09:31)
[2025-02-20] MEDS: AZITHROMYCIN INJ 250 MG, Sterile Water 2.5 ML in SODIUM CHLORIDE 0.9% 250 ML 250 ML 252.5 MG IV (09:32)
[2025-02-20] MEDS: cefTRIAXone/D5w 1gm IV premix 1 GM/50 ML BAG IV (09:32)
--- NOTE | 2025-02-20 09:59 | CHAP ---
Patient expressed gratitude for visit and prayer.
[2025-02-20] MEDS: DEXTROSE 5%-WATER 250 ML 125 ML IV (10:04)
--- NOTE | 2025-02-20 14:37 | PC.NURSE ---
pt o2 stat at 86% on room air at rest
--- NOTE | 2025-02-20 14:57 | ESDS_ITS ---
Planned Discharge Date 02/20/25 DS: Providers Provider Date of admission: 02/17/25 20:04 Primary care physician: Nick Montelongo MD Admitting Provider: Shira Barrow MD Attending Provider on Admission: Shira Barrow MD Consults: 02/18/25 02:34 Referral Speech Therapy Routine Comment: 02/18/25 03:32 Referral Registered Dietitian Routine Comment: Attending Provider on DC: Kye Andrea MD Discharging Provider: Kye Andrea MD DS: Diagnosis Problem List Completed Was Problem List Reviewed/Reconciled?: Yes Hospital Course Hospital Course Hospital course: Hospital Course: Patient is a 69-year-old male with PMH of developmental delay, nonverbal at baseline, seizure disorder, CVA with no residual deficits presenting after a fall 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 At ED patient had 2 right temporal laceration and hematoma; CT head and CT cervical spine showed no acute abnormalities. CXR showed pneumonia in posterior segment of left lower lobe. Patient admitted for acute hypoxic respiratory failure in setting of community-acquired pneumonia. Discharge Instructions: Please follow-up with your PCP within 1 week of discharge Please follow-up with You have been started on: -Amoxicillin 1000 mg 3 times daily for 3 days -Lasix 40 mg daily as needed for swelling or shortness of breath Your ferrous sulfate dose has been changed to 325 mg every alternate day instead of 3 times a day as both has same effect We have held risperidone, quetiapine and temazepam, please follow-up with your PCP regarding resuming those medications. Continue taking all other medicines as prescribed -Recommended to return back to emergency department if your symptoms persists or worsens Problem List: #Acute hypoxic respiratory failure #Community-acquired pneumonia #Ground-level fall #Laceration of the left right temporal region, status post suture placement #Hypertension #Hyperlipidemia #Hx of CVA, with residual dysphagia #History of seizures #Anxiety and aggression The case was discussed with my senior resident Dr. Beltran and my attending MD Linwood Arboleda MD Senior Resident Attestation: I discussed with and supervised the internal medicine nurse practitioner physician involved in the care of this patient. I personally saw and examined the patient and discussed the assessment and plan with the entire medicine team, including my attending. I agree with the discharge plan as documented above. Heath Beltran MD PGY3 Internal Medicine Status at Discharge Functional status at discharge: bed bound Overall status at discharge: patient is progressing back to baseline Time Spent with Patient Time attestation: Total time spent providing and/or coordinating discharge services: Time spent: Greater than 30 minutes Exam Vital Signs Temp Pulse Resp BP Pulse Ox O2 Del Method O2 Flow Rate 97.1 F 60 20 107/66 100 Nasal Cannula 2 02/20/25 12:00 02/20/25 12:07 02/20/25 12:07 02/20/25 12:00 02/20/25 12:07 02/20/25 12:00 02/20/25 12:07 Narrative Exam General: A/O x0, nonverbal at baseline, no acute distress, well-nourished, well- developed Eyes: PERRL, EOMI. Anicteric, vision grossly intact. Ears: No ear pain, no ear discharge, Hearing grossly intact. Nose: No nasal discharge. Mouth/Throat: Moist mucous membranes, no redness, no lesions. Neck: Neck supple, non-tender, no cervical lymphadenopathy. Lungs: Clear JEROME to auscultation and percussion, No accessory muscle use. Cardio: Normal S1/S2, regular rhythm, no murmurs, no JVD or carotid bruits. Abdomen: Soft, non-tender, no palpable masses, peristalsis present, no guarding or rebound. Extremities: Symmetrical, no significant deformities, no peripheral edema , non-tender, peripheral pulses present. Skin: No rashes, warm to touch. R shinto/forehead scabbed/sutured wounds, bruising from fall Neuro: No focal neurological deficits. Psych: Cooperative, appropriate mood and effect. Discharge Plan Plan Patient Disposition: HOME (Self Care) Patient condition on transfer: Stable and Benefits outweigh risks Care Plan Goals: Please follow-up with your PCP within 1 week of discharge Please follow-up with You have been started on: -Amoxicillin 1000 mg 3 times daily for 3 days -Lasix 40 mg daily as needed for swelling or shortness of breath Your ferrous sulfate dose has been changed to 325 mg every alternate day instead of 3 times a day as both has same effect We have held risperidone, quetiapine and temazepam, please follow-up with your PCP regarding resuming those medications. Continue taking all other medicines as prescribed -Recommended to return back to emergency department if your symptoms persists or worsens Prescriptions/Referrals Prescriptions/Med Rec: New furosemide [Lasix] 40 mg tablet 40 mg PO QDAY PRN (Reason: edema or shortness of breath) 7 Days Qty: 7 0RF ferrous sulfate 325 mg (65 mg iron) Tablet,Delayed Release (Dr/Ec) 325 mg PO QOD 30 Days Qty: 15 0RF amoxicillin 500 mg capsule 1,000 mg PO TID Qty: 20 0RF Continued phenytoin sodium extended 100 MG capsule 300 mg PO HS Qty: 0 multivitamin Tablet 1 tab PO QDAY levocetirizine 5 mg Tablet 5 mg PO BID PRN (Reason: Itching) atorvastatin 80 mg tablet 80 mg PO QDAY Ensure Liquid 1 ea PO TID divalproex 500 mg tablet extended release 24 hr 2,000 mg PO HS docusate sodium 250 mg capsule 250 mg PO QDAY olanzapine 15 mg tablet 30 mg PO HS Held temazepam 30 mg Capsule 30 mg PO HS Hold Instructions: Resume on 03/06/25. Until you see your PCP quetiapine [Seroquel] 50 mg Tablet 50 mg PO BID Hold Instructions: Resume on 03/06/25. until you see your PCP. risperidone 2 mg Tablet 3 mg PO HS Hold Instructions: Resume on 03/06/25. Until you see your PCP. Discontinued fluoxetine 20 mg Capsule 40 mg PO QDAY clindamycin HCl 300 mg capsule 300 mg PO TID Qty: 21 0RF valproic acid 250 mg capsule 250 mg PO BID ferrous sulfate 325 mg (65 mg iron) tablet 325 mg PO TID Referrals: Nick Montelongo MD [Primary Care Provider, Family Practice] Patient/Caregiver Discharge Instructions Discharge Activity: activity as tolerated Print Language: Gibraltarian Stand Alone Forms: Naila Award Info., Patient Portal Info Letter Discharge Order Discharge Orders: Discharge (Routine); Ordered 02/20/25 Ordered By: Eduin Taylor Quality Discharge Quality Measures none MD Attestestation MD Attestation I discussed with and supervised the resident physician who took care of this patient. I agree with the assessment and discharge plan as above. Follow-up with primary care provider as scheduled. Return to the emergency room for recurrent symptoms
== END 2025-02-20 17:20 | disposition home or self-care (01) | DRG 193 ==
LOC: SERX 18:43 → SERHOLD 20:21 → S3SX 20:58
PROVIDERS: Admitting Provider Student in an Organized Health Care Education/Training Program; Emergency Provider Emergency Medicine; PCP Family Medicine; Visit Provider Student in an Organized Health Care Education/Training Program
DX: J18.9 Pneumonia, unspecified organism (principal); J96.01 Acute respiratory failure with hypoxia; G40.909 Epilepsy, unspecified, not intractable, without status epilepticus; I69.391 Dysphagia following cerebral infarction; E86.0 Dehydration; I11.0 Hypertensive heart disease with heart failure; S01.81XA Laceration without foreign body of other part of head, initial encounter; W18.30XA Fall on same level, unspecified, initial encounter; E78.5 Hyperlipidemia, unspecified; F41.9 Anxiety disorder, unspecified; I50.9 Heart failure, unspecified
CPT/HCPCS: 36415; 36600; 51701; 70450; 71045; 72125; 80053; 80307; 80320; 81001; 82248; 82803; 83036; 83605; 83690; 83735; 83880; 84100; 84145; 84443; 84484; 85025; 85379; 85652; 86140; 87040; 87077; 87081; 87186; 87205; 87502; 87634; 87635; 92610; 93005; 93225; 94640; 94667; 94762; 96365; 96375; 99285; A4216; A9270; J0456; J0696; J1650; J1938; J3490; J7050; J7070; J7120; G0480

== ENCOUNTER 2025-02-27 16:23 | Emergency (ER) | payer MEDICARE, MEDICAID, SELFPAY ==
[2025-02-27 17:07] VITALS: BP 169/98; PULSE 88; RESP 20; TEMP 37.2; O2SAT 94
--- NOTE | 2025-02-27 17:18 | XR_ITS ---
Examination: CT abdomen and pelvis without contrast. Coronal 3-D reconstructions. Sagittal 2-D reconstructions. Date and time of exam: February 27, 2025, 1738 hours INDICATIONS: Generalized abdominal pain today CTDI: vol (mGy): 12 DLP: (mGycm): 727 Technique: Axial images of the abdomen have been obtained, 3 mm slice thickness Intravenous contrast material has not been administered. Low dose protocols were performed. One or more of the following dose reduction techniques were used; automated exposure control, adjustment of the mA and/or KV according to patient size, use of iterative reconstruction technique. Findings: Right base atelectasis, left base pneumonia No liver or splenic lesions Hepatomegaly 22 cm No gallstones No pancreatic or adrenal mass No renal or ureteral calculi, no hydronephrosis Aorta normal size No bowel obstruction Abundant stool in the rectum, mild thickening of the rectal wall Transverse prostate dimension 3.9 cm Urinary bladder contracted with marked thickening of the urinary bladder wall up to 15 mm No pericecal inflammatory change Severe osteopenia with chronic compressions L4 T12 Hips intact, prominent lumbar levoscoliosis Moderate narrowing hip joints IMPRESSION: Left base pneumonia Moderate hepatomegaly 22 cm No gallstones identified No renal or ureteral calculi, no hydronephrosis No CT findings of appendicitis or bowel obstruction Abundant stool in the rectum with mild thickening of the rectal wall, differential would include proctitis Contracted urinary bladder with marked thickening of the urinary bladder wall, recommend bladder sonography with the bladder for to best assess thickening of the bladder wall
--- NOTE | 2025-02-27 17:19 | EDRME_ITS ---
Rapid Medical Screening Exam [facility] Arrival date/time: 02/27/25 16:23 69-year-old male with a history of hyperlipidemia, developmentally delayed, congestive heart failure, CVA, presents to the emergency room with a chief complaint of abdominal distention and tenderness. Patient was sent over by his primary care provider for bladder retention I have greeted and performed a focused initial assessment of this patient. A comprehensive ED assessment and evaluation of the patient, analysis of all test results, and completion of the medical decision making process will be conducted by additional ED providers. Chief Complaint: Urogenital-Male Time Seen by Provider: 02/27/25 17:00 Vital signs: Vital Signs Temperature 98.9 F 02/27/25 17:07 Pulse Rate 88 02/27/25 17:07 Respiratory Rate 20 02/27/25 17:07 Blood Pressure 169/98 H 02/27/25 17:07 Pulse Oximetry (%) 94 L 02/27/25 17:07 Oxygen Delivery Method Nasal Cannula 02/27/25 17:07 Oxygen Flow Rate 3 02/27/25 17:07 Exam: Tenderness to the abdominal area Clear bilateral lung sounds Clinical Impression: Urinary retention/abdominal pain
[2025-02-27 18:13] LABS: Basophils # (Auto) 0.1 Thou/mm3 (0.0-0.2); Basophils % (Auto) 1 % (0-2.5); Eosinophils # (Auto) 0.1 Thou/mm3 (0.0-0.5); Eosinophils % (Auto) 1 % (0-10); Hematocrit 44.0 % (41.0-53.0); Hemoglobin 14.8 g/dL (13.5-16.0); Immature Granulocytes Auto 0.10 Thou/mm3 (0.00-0.00); Lymphocytes # (Auto) 1.4 Thou/mm3 (1.0-4.8); Lymphocytes % (Auto) 17 % (10-50); Mean Corpuscular HGB Conc 33.6 g/dl (31.0-37.0); Mean Corpuscular Hemoglobin 32.5 pg (25.0-35.0); Mean Corpuscular Volume 97 fL (80-100); Monocytes # (Auto) 1.1 Thou/mm3 (0.0-0.8); Monocytes % (Auto) 13 % (0-12); Neutrophils # (Auto) 5.4 Thou/mm3 (1.8-7.7); Neutrophils % (Auto) 67 % (37-80); Nucleated Red Blood Cell # 0.00 Thou/mm3 (0.00-0.00); Nucleated Red Blood Cell % 0 /100 WBC (0); Platelet Count 360 Thou/mm3 (140-440); RDW Standard Deviation 41.7 fL (35.1-43.9); Red Blood Count 4.56 Miln/mm3 (4.50-5.90); White Blood Count 8.1 Thou/mm3 (3.8-10.6)
[2025-02-27 18:33] LABS: Alanine Aminotransferase 30 U/L (10-49); Albumin, Serum 4.5 gm/dL (3.4-4.8); Albumin/Globulin Ratio 1.5 (1.2-2.2); Alkaline Phosphatase 128 U/L (46-116); Anion Gap 9 (7-16); Aspartate Amino Transferase 24 U/L (0-34); BUN/Creatinine Ratio 17 Ratio (12-20); Bilirubin,Total 0.2 mg/dL (0.3-1.2); Blood Urea Nitrogen 12 mg/dL (9-23); Calcium 9.3 mg/dL (8.3-10.6); Calcium (Corrected) 9.3 mg/dL (8.5-10.1); Carbon Dioxide 31.7 mMol/L (20.0-31.0); Chloride 103 mMol/L (98-107); Creatinine (Component) 0.7 mg/dL (0.6-1.3); Globulin 3.1 gm/dL (2.3-3.5); Glucose 93 mg/dL (74-106); Lipase 39 U/L (12-53); Osmolality,Calculated 286 (275-295); Potassium 4.4 mMol/L (3.4-5.1); Sodium 144 mMol/L (136-145); Total Protein 7.6 gm/dL (5.7-8.2); eGFR > 60 See Note
--- NOTE | 2025-02-27 19:49 | PD.EDMALE ---
ED Male Genitalurinary RME/HPI General Chief complaint: Urogenital-Male Stated complaint: URINARY RETENTION PER DR. MONCADA Time Seen by Provider: 02/27/25 17:00 Arrival date/time: 02/27/25 16:23 RME / HPI RME / HPI Narrative: 02/27/25 16:23 69-year-old male with a history of hyperlipidemia, developmentally delayed, congestive heart failure, CVA, presents to the emergency room with a chief complaint of abdominal distention and tenderness. Patient was sent over by his primary care provider for bladder retention I have greeted and performed a focused initial assessment of this patient. A comprehensive ED assessment and evaluation of the patient, analysis of all test results, and completion of the medical decision making process will be conducted by additional ED providers. See MDM for Dr. Gould's HPI documentation. Related Data Home Medications ?Medication ?Instructions ?Recorded ?Confirmed phenytoin sodium extended 100 mg 300 mg PO HS ##0 09/01/15 02/18/25 capsule levocetirizine 5 mg tablet 5 mg PO BID PRN Itching 12/31/21 02/18/25 multivitamin 1 tab PO QDAY 12/31/21 02/18/25 quetiapine 50 mg tablet (Seroquel) 50 mg PO BID 12/31/21 02/18/25 Held on 02/20/25. Instructions: Resume on 03/06/25. until you see your PCP. temazepam 30 mg capsule 30 mg PO HS 12/31/21 02/18/25 Held on 02/20/25. Instructions: Resume on 03/06/25. Until you see your PCP risperidone 2 mg tablet 3 mg PO HS 05/06/22 02/18/25 Held on 02/20/25. Instructions: Resume on 03/06/25. Until you see your PCP. atorvastatin 80 mg tablet 80 mg PO QDAY 02/19/23 02/18/25 food supplemt, lactose-reduced 1 ea PO TID 02/19/23 02/18/25 (Ensure oral liquid) divalproex 500 mg tablet,extended 2,000 mg PO HS anxiety 02/18/25 02/18/25 release 24 hr docusate sodium 250 mg capsule 250 mg PO QDAY 02/18/25 02/18/25 olanzapine 15 mg tablet 30 mg PO HS 02/18/25 02/18/25 Previous Rx's ?Medication ?Instructions ?Recorded amoxicillin 500 mg capsule 1,000 mg (2 x 500 mg) PO TID #20 02/20/25 caps ferrous sulfate 325 mg (65 mg 325 mg PO QOD 30 days #15 tabs 02/20/25 iron) tablet,delayed release magnesium hydroxide 2,400 mg/10 mL 30 ml PO QDAY PRN constipation #60 02/27/25 oral suspension (Milk Of Magnesia mL Concentrated) Allergies Allergy/AdvReac Type Severity Reaction Status Date / Time No Known Allergies Allergy Verified 02/27/25 16:26 Review of Systems Review of Systems Systems Reviewed: All systems reviewed, normal except as documented Past Medical History Past Medical History NEUROLOGIC: Positive Seizures; Negative Neurological Disorders CARDIAC: Positive Hypertension; Negative Cardiac Disorders, Hypercholesterolemia or Congestive Heart Failure RESPIRATORY: Positive Asthma; Negative Chronic Obstructive Pulmonary Disease (COPD) GASTROINTESTINAL: Negative Gastrointestinal Disorders or Gastroesophageal Reflux Disease GENITOURINARY: Negative Genitourinary Disorders, Renal Disease or Kidney Stones MUSCULOSKELETAL: Positive Fractures; Negative Musculoskeletal Disorders ENT: Negative Cataracts or Blind ENDOCRINE: Negative Endocrine Disorders, Diabetes Mellitus Type 1, Diabetes Mellitus Type 2 or Hypothyroidism HEMATOLOGIC: Negative Blood Disorders, Anemia or Sickle Cell Disease PSYCHO/SOCIAL: Positive Anxiety OTHER HISTORY: Positive Hospitalization, Developmental Delay and Falls; Negative Blood Transfusions, Anesthesia Reactions or Cancer Family History FAMILY HISTORY: Negative Family Cardiac Disorders Social History SMOKING STATUS: Never smoker SECOND HAND EXPOSURE: No ED Exam Narrative Physical exam: See [facility] for Dr. Gould's physical exam documentation. Course Quality Measures none Orders Category Date Time Status Bladder Scan NEEDED Care 02/27/25 17:[address] abdomen pelvis wo con Stat Exams 02/27/25 17:18 Completed CBC Stat Lab 02/27/25 17:55 Completed CMP [Comprehensive Metabolic Panel] Stat Lab 02/27/25 17:55 Completed Lipase Stat Lab 02/27/25 17:55 Completed Vital Signs Vital signs: Vital Signs Temperature 98.9 F 02/27/25 17:07 Pulse Rate 88 02/27/25 17:07 Respiratory Rate 20 02/27/25 17:07 Blood Pressure 169/98 H 02/27/25 17:07 Pulse Oximetry (%) 94 L 02/27/25 17:07 Oxygen Delivery Method Nasal Cannula 02/27/25 17:07 Oxygen Flow Rate 3 02/27/25 17:07 Urogenital - Male MDM Narrative MDM Narrative:: This section includes all my notes and documentations, including HPI, PE, and ED course. 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 Concerned about urinary retention by outside office doctor earlier today. [facility] reports he has been urinating normally. No vomiting. Eating normally. No other complaints. ROS: All negative except as documented in HPI. Physical Exam: General: Alert. No acute distress when remaining still. Eyes: Conjunctivae and lids clear. ENT: No nasal congestion. Neck: Supple. Heart: RRR. Lungs: No respiratory distress. Good air movement. No rhonchi, wheezing, rales. Abdomen: Soft and nontender. Normal bowel sounds. No distension. No rebound or guarding. Back: No CVA tenderness. Skin: Warm and dry. Neuro: Alert and oriented X 3. I reviewed all diagnostic test results. My review of the CT abdomen pelvis report is constipation. Blood tests are unremarkable. At this point, diagnoses include: Constipation Prescribed a trial of conservative treatment. Based on my best medical judgment, made decision no further evaluation or treatment indicated at this time. correction staff understands and agrees to the discharge instructions customized and printed, see below. Discharge instructions from Dr. Gould printed for you: -- After extensive evaluation, your bladder is empty. -- You have severe constipation. -- Milk of magnesia as prescribed to empty out the bowels. -- There is a ton of feces in the rectum. Wearing gloves and using K-Y jelly, insert finger to clear out the rectum. This will help clear out the bowels. -- To help current constipation and prevent future constipation, increase oral fluid because dehydration cause severe constipation. Maintain clear urine. If dark or yellow, increase oral fluid. -- And every day, increase fresh fruits and fresh vegetables and physical exercise. -- See a private doctor on 03/01/2025 for recheck. Ask to review all test results and official radiology reports, to make sure you receive all necessary follow-ups and monitoring. To make sure there is no serious underlying abdominal condition, ask to help you get more care not available here in the ER. Such as EGD or scoping of your stomach, colonoscopy or scoping the colon, and a referral to see a medical logistics specialist. -- Seek immediate medical care with worsening or with any concerns. Ez Gould MD Patient data External records reviewed:: [facility] previous records (Per chart review, patient was admitted here on 02/17/25 for acute respiratory failure with hypoxia.) Clinical information provided by:: patient Social determinants that could affect healthcare access:: none Patient has the following chronic illnesses:: developmental delay, seizures, HTN How is presenting disease/condition affected by chronic disease/condition?: uneffected by Evaluation data The following diagnostics were reviewed and interpreted by me:: lab results and radiology exam(s) Lab and/or radiology exams considered but not ordered:: none Interpretation Summary: I reviewed all diagnostic test results. My review of the CT abdomen pelvis report is abundant stool in the rectum. Blood tests are unremarkable. Medications / Prescriptions Medications or Prescriptions considered but not ordered:: none Medication administrations:: none Consultations Consultation(s) initiated? (list below): No Diagnosis Urogenital Male Differential Diagnosis: acute retention of urine and other (Constipation) Most likely diagnosis given after review of the tests above:: Constipation Admission Indicated Admission indicated?: not indicated Explain why admission is indicated or not indicated:: With no condition needing emergent intervention, there was no indication for admission. Admission Request Was there a request for admission?: No Disposition Plan Disposition Plan: Discharge Discharge Attestation Discharge Attestation: The patient and all family members were given an opportunity to ask questions and understood the discharge instructions. Discharge instructions specifically effects, indications for sooner follow up or return to the emergency department, and the expected course of current diagnosis. Patient condition: Stable Discharge Plan Plan Patient Disposition: HOME (Self Care) Prescriptions/Referrals Prescriptions/Med Rec: New magnesium hydroxide [Milk Of Magnesia Concentrated] 2,400 mg/10 mL suspension 30 ml PO QDAY PRN (Reason: constipation) Qty: 60 0RF No Action phenytoin sodium extended 100 MG capsule 300 mg PO HS Qty: 0 multivitamin Tablet 1 tab PO QDAY temazepam 30 mg Capsule 30 mg PO HS quetiapine [Seroquel] 50 mg Tablet 50 mg PO BID levocetirizine 5 mg Tablet 5 mg PO BID PRN (Reason: Itching) risperidone 2 mg Tablet 3 mg PO HS atorvastatin 80 mg tablet 80 mg PO QDAY Ensure Liquid 1 ea PO TID divalproex 500 mg tablet extended release 24 hr 2,000 mg PO HS docusate sodium 250 mg capsule 250 mg PO QDAY olanzapine 15 mg tablet 30 mg PO HS ferrous sulfate 325 mg (65 mg iron) Tablet,Delayed Release (Dr/Ec) 325 mg PO QOD 30 Days Qty: 15 0RF amoxicillin 500 mg capsule 1,000 mg PO TID Qty: 20 0RF Referrals: Nick Moncada MD [Primary Care Provider, Family Practice] - In 1 week Problem List Clinical Impression: Constipation Patient/Caregiver Discharge Instructions Discharge Activity: activity as tolerated Education Materials: ED Constipation (Adult) Additional Instructions: Discharge instructions from Dr. Gould printed for you: -- After extensive evaluation, your bladder is empty. -- You have severe constipation. -- Milk of magnesia as prescribed to empty out the bowels. -- There is a ton of feces in the rectum. Wearing gloves and using K-Y jelly, insert finger to clear out the rectum. This will help clear out the bowels. -- To help current constipation and prevent future constipation, increase oral fluid because dehydration cause severe constipation.? Maintain clear urine.? If dark or yellow, increase oral fluid. -- And every day, increase fresh fruits and fresh vegetables and physical exercise. -- See a private doctor on 03/01/2025 for recheck. Ask to review all test results and official radiology reports, to make sure you receive all necessary follow-ups and monitoring. To make sure there is no serious underlying abdominal condition, ask to help you get more care not available here in the ER.? Such as EGD or scoping of your stomach, colonoscopy or scoping the colon, and a referral to see a medical logistics specialist. -- Seek immediate medical care with worsening or with any concerns. Print Language: Croatian Stand Alone Forms: Naila Award Info., Patient Portal Info Letter
== END 2025-02-27 20:23 | disposition home or self-care (01) ==
PROVIDERS: Nurse Practitioner Family; Emergency Provider Emergency Medicine; PCP Family Medicine
DX: K59.00 Constipation, unspecified (principal)
CPT/HCPCS: 36415; 74176; 80053; 81001; 83690; 85025; 87086; 99283